=== PATIENT | male | born 1955 | race Caucasian/White ===

== ENCOUNTER → 2021-06-18 | Outpatient (CLI) | payer MEDICARE | LOC: KOH-I 08:30 | DX: M16.11 Unilateral primary osteoarthritis, right hip (principal); M51.27 Other intervertebral disc displacement, lumbosacral region; M48.07 Spinal stenosis, lumbosacral region | CPT/HCPCS: 72148 ==

== ENCOUNTER → 2021-10-07 | Outpatient (CLI) | payer MEDICARE | LOC: HEART 5 08:00 | DX: I25.10 Atherosclerotic heart disease of native coronary artery without angina pectoris (principal); I35.1 Nonrheumatic aortic (valve) insufficiency | CPT/HCPCS: 78452; 93306; A9502; J2785 ==

== ENCOUNTER 2021-10-20 10:08 | Inpatient (IN) | payer MEDICARE, MEDICAID ==
[~2021-10-20] VITALS: Ht 182.9 cm; Wt 103.0 kg
[2021-10-20 11:30] LABS: HEMOGLOBIN 15.1 gm/dl (14.0-17.5); RED BLOOD COUNT 5.05 M/UL (4.20-5.50); WHITE BLOOD COUNT 12.6 K/UL (4.5-11.0)
[2021-10-20 12:09] LABS: BUN/CREATININE RATIO 23 (0-10)
[2021-10-20] MEDS ORDERED: ISOSORBIDE MONO30 MG PO (18:12)
[2021-10-20] MEDS ORDERED: TAMSULOSIN HCL0.4 MG PO (18:12)
[2021-10-20] MEDS ORDERED: METOPROLOL TART25 MG PO (18:12)
[2021-10-20] MEDS ORDERED: LISINOPRIL-HCT1 EAC1 PO (18:12)
[2021-10-20] MEDS ORDERED: LEVOTHYROXINE137 MCG PO (18:13)
[2021-10-20] MEDS ORDERED: GABAPENTIN300 MG PO (18:13)
[2021-10-20] MEDS ORDERED: ASPIRIN EC81 MG PO (18:14)
[2021-10-21 02:13] LABS: HEMOGLOBIN 14.2 gm/dl (14.0-17.5); RED BLOOD COUNT 4.75 M/UL (4.20-5.50); WHITE BLOOD COUNT 10.5 K/UL (4.5-11.0)
[2021-10-21 02:46] LABS: BUN/CREATININE RATIO 28 (0-10)
[2021-10-22 06:39] LABS: HEMOGLOBIN 13.9 gm/dl (14.0-17.5); RED BLOOD COUNT 4.69 M/UL (4.20-5.50)
[2021-10-22 06:43] LABS: WHITE BLOOD COUNT 7.4 K/UL (4.5-11.0)
[2021-10-22 07:02] LABS: BUN/CREATININE RATIO 22 (0-10)
[2021-10-23 05:36] LABS: HEMOGLOBIN 14.3 gm/dl (14.0-17.5); RED BLOOD COUNT 4.84 M/UL (4.20-5.50); WHITE BLOOD COUNT 8.1 K/UL (4.5-11.0)
[2021-10-23 06:12] LABS: BUN/CREATININE RATIO 26 (0-10)
[2021-10-23] MEDS ORDERED: CIPRO500 MG PO (12:00)
== END 2021-10-23 13:07 | disposition home or self-care (01) | DRG 194 ==
LOC: ER1 10:08 → M/S 15:14 → CDU 15:14 → M/S 17:07
PROVIDERS: Nurse Practitioner; Physician Assistant; ADMIT Internal Medicine
PROC: B24BZZZ Ultrasonography of Heart with Aorta (ICD-10-PCS; principal; 2021-10-21)
DX: J18.9 Pneumonia, unspecified organism (principal); N30.00 Acute cystitis without hematuria; Z20.822 Contact with and (suspected) exposure to COVID-19; I10 Essential (primary) hypertension; E78.5 Hyperlipidemia, unspecified; B95.7 Other staphylococcus as the cause of diseases classified elsewhere; N40.1 Benign prostatic hyperplasia with lower urinary tract symptoms; I95.9 Hypotension, unspecified; R00.1 Bradycardia, unspecified; E03.9 Hypothyroidism, unspecified; E87.6 Hypokalemia; I08.2 Rheumatic disorders of both aortic and tricuspid valves; I71.4 Abdominal aortic aneurysm, without rupture; D72.829 Elevated white blood cell count, unspecified; K21.9 Gastro-esophageal reflux disease without esophagitis; I25.10 Atherosclerotic heart disease of native coronary artery without angina pectoris; Z95.5 Presence of coronary angioplasty implant and graft; Z85.048 Personal history of other malignant neoplasm of rectum, rectosigmoid junction, and anus; Z85.038 Personal history of other malignant neoplasm of large intestine; Z79.82 Long term (current) use of aspirin; Z95.1 Presence of aortocoronary bypass graft; Z85.028 Personal history of other malignant neoplasm of stomach; Z95.2 Presence of prosthetic heart valve; Z90.49 Acquired absence of other specified parts of digestive tract; Z82.49 Family history of ischemic heart disease and other diseases of the circulatory system; I25.2 Old myocardial infarction; Z86.73 Personal history of transient ischemic attack (TIA), and cerebral infarction without residual deficits
CPT/HCPCS: ECHO; 36415; 71045; 71275; 80048; 80053; 80202; 81001; 82550; 82553; 83735; 83874; 83880; 84484; 85025; 85379; 85610; 85730; 87077; 87086; 87186; 93005; 93306; 99285; J0456; J0696; J3370; J7030; J7070; Q9967; U0002

== ENCOUNTER → 2021-11-21 | Outpatient (CLI) | payer MEDICARE ==
[~2021-11-21] MED LIST: ASPIRIN EC81 MG PO; CIPRO500 MG PO; GABAPENTIN300 MG PO; ISOSORBIDE MONO30 MG PO; LEVOTHYROXINE137 MCG PO; LISINOPRIL-HCT1 EAC1 PO; METOPROLOL TART25 MG PO; TAMSULOSIN HCL0.4 MG PO
== END ==
LOC: KOH-I 09:09
DX: R31.9 Hematuria, unspecified (principal); R93.5 Abnormal findings on diagnostic imaging of other abdominal regions, including retroperitoneum; Z93.3 Colostomy status
CPT/HCPCS: 74176

== ENCOUNTER → 2021-12-23 | Outpatient (CLI) | payer MEDICARE | LOC: MRI 12-20 08:30 | DX: K76.9 Liver disease, unspecified (principal); K86.2 Cyst of pancreas; K80.20 Calculus of gallbladder without cholecystitis without obstruction | CPT/HCPCS: 36415; 74183; 82565; A9577 ==

== ENCOUNTER 2022-05-07 13:34 | Inpatient (IN) | payer MEDICARE ==
[~2022-05-07] VITALS: Ht 182.9 cm; Wt 101.6 kg
[~2022-05-07 13:34] MED LIST changes: -GABAPENTIN300 MG PO; +GABAPENTIN400 MG PO
[2022-05-07 14:13] LABS: HEMOGLOBIN 16.4 gm/dl (14.0-17.5); RED BLOOD COUNT 5.53 M/UL (4.20-5.50); WHITE BLOOD COUNT 7.5 K/UL (4.5-11.0)
[2022-05-07 14:44] LABS: BUN/CREATININE RATIO 18 (0-10)
[2022-05-07] MEDS ORDERED: DULOXETINE HCL60 MG PO (16:32)
[2022-05-07] MEDS ORDERED: MELOXICAM15 MG PO (16:32)
[2022-05-07] MEDS ORDERED: PRAVASTATIN SOD40 MG PO (16:33)
[2022-05-07] MEDS ORDERED: TOPIRAMATE25 MG PO (16:34)
[2022-05-07] MEDS ORDERED: NITROGLYCERIN0.4 MG SL (16:35)
[2022-05-07 21:46] LABS: HEMOGLOBIN 14.3 gm/dl (14.0-17.5); RED BLOOD COUNT 4.8 M/UL (4.20-5.50); WHITE BLOOD COUNT 9.8 K/UL (4.5-11.0)
[2022-05-08 02:02] LABS: HEMOGLOBIN 14.1 gm/dl (14.0-17.5); RED BLOOD COUNT 4.76 M/UL (4.20-5.50); WHITE BLOOD COUNT 8.6 K/UL (4.5-11.0)
[2022-05-08 02:42] LABS: BUN/CREATININE RATIO 18 (0-10)
--- NOTE | 2022-05-08 10:45 | NUR ---
Called patient room afer report from [employer] and Nurse EXt patient would like to change his code status. Went into patient room to verify request of code staus change. And stated I needed to hear from him, although his was here. I asked patient when he came to floor was he a DNR DNi, patient stated " yes" and when patient saw DR Lisy barone he had refused his heart cath patient stated " yes" Then asked patient if he wanted to change his code staus to full code he said" yes" and then ask if he now wanted his heart cath he stated" yes" . When I asked patient if there was anything else I could do for him he stated " no" .
[2022-05-09 04:32] LABS: HEMOGLOBIN 13.6 gm/dl (14.0-17.5); RED BLOOD COUNT 4.53 M/UL (4.20-5.50)
[2022-05-09 05:08] LABS: BUN/CREATININE RATIO 22 (0-10)
[2022-05-09] MEDS ORDERED: BRILINTA 90 MG90 MG PO (14:06)
[2022-05-10 05:24] LABS: RED BLOOD COUNT 4.71 M/UL (4.20-5.50); WHITE BLOOD COUNT 8.5 K/UL (4.5-11.0)
[2022-05-10 05:43] LABS: BUN/CREATININE RATIO 19 (0-10)
[2022-05-10] MEDS ORDERED: ASPIRIN EC81 MG PO (12:15)
[2022-05-10] MEDS ORDERED: LASIX20 MG PO (12:15)
[2022-05-10] MEDS ORDERED: TOPROL XL25 MG PO (12:15)
[2022-05-10] MEDS ORDERED: K-TAB ER20 MEQ PO (12:15)
[2022-05-10] MEDS ORDERED: ZESTRIL2.5 MG PO (12:15)
[2022-05-10] MEDS ORDERED: ATORVASTATIN CA20 MG PO (12:15)
[2022-05-10] MEDS ORDERED: LEVOFLOXACIN750 MG PO ×2 (13:35→13:54)
== END 2022-05-10 14:56 | disposition home or self-care (01) | DRG 247 ==
LOC: ER1 13:34 → CDU 15:25 → MED SURG 4 15:25 → CCU 05-08 09:34 → PROG CARE 05-08 16:49 → CCU 05-08 21:33
PROVIDERS: Internal Medicine; Physician Assistant; ADMIT Internal Medicine
PROC: 027034Z Dilation of Coronary Artery, One Artery with Drug-eluting Intraluminal Device, Percutaneous Approach (ICD-10-PCS; principal; 2022-05-08)
PROC: B241ZZ3 Ultrasonography of Multiple Coronary Arteries, Intravascular (ICD-10-PCS; 2022-05-08)
PROC: B2111ZZ Fluoroscopy of Multiple Coronary Arteries using Low Osmolar Contrast (ICD-10-PCS; 2022-05-08)
PROC: B24BZZZ Ultrasonography of Heart with Aorta (ICD-10-PCS; 2022-05-08)
DX: I21.4 Non-ST elevation (NSTEMI) myocardial infarction (principal); N39.0 Urinary tract infection, site not specified; I25.119 Atherosclerotic heart disease of native coronary artery with unspecified angina pectoris; Z20.822 Contact with and (suspected) exposure to COVID-19; Z66 Do not resuscitate; I10 Essential (primary) hypertension; E78.5 Hyperlipidemia, unspecified; E87.6 Hypokalemia; I16.0 Hypertensive urgency; Z96.698 Presence of other orthopedic joint implants; E03.9 Hypothyroidism, unspecified; K21.9 Gastro-esophageal reflux disease without esophagitis; N40.0 Benign prostatic hyperplasia without lower urinary tract symptoms; R53.81 Other malaise; R41.82 Altered mental status, unspecified; I08.3 Combined rheumatic disorders of mitral, aortic and tricuspid valves; Z79.82 Long term (current) use of aspirin; Z79.01 Long term (current) use of anticoagulants; I69.328 Other speech and language deficits following cerebral infarction; Z95.2 Presence of prosthetic heart valve; Z85.038 Personal history of other malignant neoplasm of large intestine; Z93.3 Colostomy status; Z88.8 Allergy status to other drugs, medicaments and biological substances; Z82.49 Family history of ischemic heart disease and other diseases of the circulatory system
CPT/HCPCS: ECHO; 36415; 71045; 71046; 80048; 80053; 81001; 82550; 82553; 84484; 85025; 85027; 85347; 85610; 85730; 87077; 87086; 87186; 92978; 93005; 93306; 96361; 96372; 96374; 96375; 96376; 97116; 97116-GP-CQ; 97162; 97530-GP-CQ; 99152; 99153; 99285; C1725; C1753; C1769; C1874; C1887; C1894; C9113; C9600; G0378; J0461; J1644; J1650; J2250; J2270; J2370; J3010; J3246; J7040; Q9967

== ENCOUNTER → 2022-05-16 | Outpatient (CLI) | payer MEDICARE ==
[~2022-05-16] MED LIST changes: +ATORVASTATIN CA20 MG PO; +BRILINTA 90 MG90 MG PO; +DULOXETINE HCL60 MG PO; +K-TAB ER20 MEQ PO; +LASIX20 MG PO; +LEVOFLOXACIN750 MG PO; +MELOXICAM15 MG PO; +NITROGLYCERIN0.4 MG SL; +PRAVASTATIN SOD40 MG PO; +TOPIRAMATE25 MG PO; +TOPROL XL25 MG PO; +ZESTRIL2.5 MG PO
[2022-05-16 16:10] LABS: BUN/CREATININE RATIO 20 (0-10)
[2022-05-16 16:36] LABS: HEMOGLOBIN 15.3 gm/dl (14.0-17.5); RED BLOOD COUNT 5.43 M/UL (4.20-5.50); WHITE BLOOD COUNT 8.6 K/UL (4.5-11.0)
== END ==
LOC: LAB 15:05
PROVIDERS: Internal Medicine
DX: J90 Pleural effusion, not elsewhere classified (principal); I10 Essential (primary) hypertension; D69.6 Thrombocytopenia, unspecified
CPT/HCPCS: 36415; 71046; 80048; 85027